=== PATIENT | female | born 1960 | race Caucasian/White ===

== ENCOUNTER 2025-01-24 09:17 | Emergency (ER) | payer BC ==
[2025-01-24 11:23] LABS: BASOPHILS ABSOLUTE AUTO 0.06 K/uL (0.00-0.10); BASOPHILS PERCENT AUTO 0.8 % (0.1-1.3); EOSINOPHILS ABSOLUTE AUTO 0.09 K/uL (0.00-0.40); EOSINOPHILS PERCENT AUTO 1.2 % (0.0-5.4); IMMATURE GRAN PERCENT AUTO 0.1 % (0.0-0.7); LYMPHOCYTES ABSOLUTE AUTO 2.58 K/uL (0.8-3.3); LYMPHOCYTES PERCENT AUTO 34.0 % (11.4-47.7); MONOCYTES ABSOLUTE AUTO 0.39 K/uL (0.20-0.90); MONOCYTES PERCENT AUTO 5.1 % (3.3-12.6); NEUTROPHILS ABSOLUTE AUTO 4.45 K/uL (1.0-7.6); NEUTROPHILS PERCENT AUTO 58.8 % (40.0-78.1); PLATELET COUNT,PLT 305 K/uL (130-375); RED BLOOD CELL COUNT 4.25 M/uL (3.77-5.24); WHITE BLOOD CELL COUNT,WBC 7.6 K/uL (3.2-11.0)
[2025-01-24 11:25] LABS: BASE EXCESS VENOUS 0.4 mm/L; BICARBONATE,VENOUS 23.7 mmol/L; IMMATURE GRAN ABSOLUTE AUTO 0.01 K/uL (0.00-0.23); O2 SATURATION VENOUS 71.3; OXYHEMOGLOBIN 69.6 %; PCO2 VENOUS 35.8 mm/Hg; PH,VENOUS 7.436 (7.350-7.450); TOTAL HEMOGLOBIN 14.6 g/dL (12.0-16.0)
[2025-01-24 11:28] LABS: PO2 VENOUS 37.9 mm/Hg
[2025-01-24 11:49] LABS: ALANINE AMINOTRANSFERASE,ALT 31 U/L (12-78); ASPARTATE AMNIOTRANSFERASE,AST 18 U/L (15-37); BILIRUBIN TOTAL 0.5 mg/dL (0.2-1.0); BLOOD UREA NITROGEN,BUN 12 mg/dL (7-18); CARBON DIOXIDE,CO2 26 mmol/L (21-32); CHLORIDE,CL 106 mmol/L (100-108); CREATININE 1.0 mg/dL (0.6-1.0); EST CRCL DRUG DOSING (CG) 48.25 mL/min; ESTIMATED GFR 64 mL/min (>60); GLUCOSE RANDOM 107 mg/dL (74-106); POTASSIUM,K 3.8 mmol/L (3.6-5.2); PROTEIN TOTAL,TP 7.2 g/dL (6.4-8.2); SODIUM,NA 139 mmol/L (140-148)
[2025-01-24 11:57] LABS: A/G RATIO 1.0 (1.2-2.2)
[2025-01-24 12:31] LABS: APPEARANCE,URINE CLEAR (CLEAR); GLUCOSE,URINE NEGATIVE (NEGATIVE); OCCULT BLOOD,URINE NEGATIVE (NEGATIVE)
[2025-01-24 12:38] LABS: SQUAMOUS EPITHELIAL CELLS,UR RARE /HPF; UROTHELIAL CELLS,URINE NOT SEEN /HPF
[2025-01-24 12:39] LABS: AMPHETAMINES SCREEN, URINE NEGATIVE (NEGATIVE); METHADONE SCREEN, URINE NEGATIVE (NEGATIVE); METHAMPHETAMINES SCREEN, URINE NEGATIVE (NEGATIVE); OXYCODONE SCREEN,URINE NEGATIVE (NEGATIVE); PROPOXYPHENE SCREEN,URINE NEGATIVE (NEGATIVE); THC SCREEN,URINE 50 NG/ML NEGATIVE (NEGATIVE)
[2025-01-24] MEDS: Gadoteridol 279.3 MG/ML 15 ML SDV IV SCH (14:17)
== END 2025-01-24 15:56 | disposition home or self-care (01) ==
LOC: JP.ED 09:17
DX: R42 Dizziness and giddiness (principal); Z79.899 Other long term (current) drug therapy
CPT/HCPCS: 36415; 70553; 80053; 80305; 80307; 81001; 82803; 85025; 96360; 96361; 99285; A9270; A9579; J7030